=== PATIENT | female | born 1950 | race American Indian/Alaskan Native ===

== ENCOUNTER 2019-03-28 15:07 | Emergency (ER) | payer MEDICARE ==
--- NOTE | 2019-03-28 15:39 | Emergency Department Report ---
Chief Complaint: Headache Stated Complaint: OFF BALANCE/HEADACHE/DIZZY Time Seen by Provider: 03/28/19 15:37 - HPI History of Present Illness: This is a 69 y.o. female that presents to ER with headache for 3 weeks. Patient seen by PCP last week and prescribed medication for URI. Patient completed 5 days of antibiotics and continue to use symptomatic medication. PMH HTN, DM, & HLD. - Exam Vital Signs: Vital Signs 03/28/19 15:34 Temperature 97.5 F L Pulse Rate 109 H Respiratory 20 Rate Blood Pressure 151/85 O2 Sat by Pulse 98 Oximetry MSE screening note: Focused history and physical exam performed. Due to findings the following was ordered: CT of head ACC for further evaluation. ED Disposition for MSE Condition: Stable
--- NOTE | 2019-03-28 16:44 | Cat Scan Report ---
PROCEDURE: CT head without contrast. TECHNIQUE: Computerized tomography of the head was performed without contrast material. CT DOSE LENGTH PRODUCT: 805.4 mGycm HISTORY: Headache. COMPARISONS: None. FINDINGS: The ventricles are normal in size. There is diminished attenuation within the subcortical and deep wh ite matter of the right frontal lobe. This is located posteriorly near the central sulcus. At the pos terior margin of this low density is an ovoid mass with predominantly higher attenuation. This measur es approximately 1.8 cm x 1.3 cm in cross-section. The findings are suspicious for a dense metastasis or hemorrhagic metastasis with adjacent vasogenic edema. Clinical correlation is recommended. There is a smaller area of diminished attenuation involving the right parietal lobe. There is no definite m ass lesion. This could represent edema or a subacute infarct. There is a large, irregular area of low -attenuation involving the right cerebellar hemisphere. There is some mass effect evident with compre ssion of the right side of the fourth ventricle. Vasogenic edema from an occult metastasis or a large subacute cerebellar infarct are both possible. Further evaluation with a contrast enhanced MRI scan would be the best means of further evaluation. The calvarium appears intact. The mastoid air cells an d paranasal sinuses are well aerated as far as visualized. IMPRESSION: Abnormal findings in the posterior right frontal lobe, right parietal lobe and right cer ebellar hemisphere. 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 Subacute in farcts are also possible. This document is electronically signed by Mike Cote MD., Mar 28 2019 04:42:50 PM ET
--- NOTE | 2019-03-28 16:49 | Emergency Department Report ---
ED Dizziness HPI - General Chief Complaint: Headache Stated Complaint: OFF BALANCE/HEADACHE/DIZZY Time Seen by Provider: 03/28/19 15:37 Source: patient Mode of arrival: Ambulatory Limitations: No Limitations - History of Present Illness Initial Comments: 69-year-old female with history of hypertension, diabetes, hypercholesterolemia presents to the ED with 3 week history of headache and dizziness. Patient states 2 weeks ago patient was seen by her PCP and given an allergy medication and cough medication, however patient reports no relief with these medicines. Patient states all week ago she retired her PCP and was given a prescription for meclizine, which also did not help with her dizziness. Patient decided to come to the ER today because of persistence of her symptoms. The patient reports one episode of emesis a few days ago. Patient reports intermittent frontal headache, worse with coughing. Patient also reports she feels unsteady when she walks, sometimes having to hold onto the hurtado because she feels as if she might fall. Patient denies fever, chest pain, shortness of breath. Patient denies weakness or numbness. MD Complaint: dizziness -: week(s) (3) Timing: constant Description: off-balance, nausea History of Same: No History of Trauma: No Severity: severe Improves With: nothing Worsens With: movement Associated Symptoms: cough. denies: chest pain, confusion, fever/chills, shortness of breath, weakness - Related Data Previous Rx's Medication Instructions Recorded Last Taken Type Acetaminophen [Tylenol] 1,000 mg PO Q6HR #20 tablet 12/22/15 Unknown Rx Ondansetron [Zofran Odt] 4 mg PO Q8HR #15 tab.rapdis 12/22/15 Unknown Rx Allergies Allergy/AdvReac Type Severity Reaction Status Date / Time Penicillins Allergy Unknown Verified 03/28/19 15:11 ED Review of Systems ROS: Stated complaint: OFF BALANCE/HEADACHE/DIZZY Other details as noted in HPI Comment: All other systems reviewed and negative Constitutional: denies: chills, fever Eyes: denies: vision change Respiratory: cough Cardiovascular: denies: chest pain Gastrointestinal: nausea, vomiting Neurological: headache, abnormal gait, vertigo. denies: weakness, numbness, paresthesias ED Past Medical Hx - Past Medical History Hx Hypertension: Yes Hx Diabetes: Yes Additional medical history: high cholesterol - Surgical History Hx Cholecystectomy: Yes Additional Surgical History: ear - Social History Smoking Status: Never Smoker Substance Use Type: None - Medications Home Medications: Home Medications Medication Instructions Recorded Confirmed Last Taken Type Acetaminophen [Tylenol] 1,000 mg PO Q6HR #20 tablet 12/22/15 Unknown Rx Ondansetron [Zofran Odt] 4 mg PO Q8HR #15 tab.rapdis 12/22/15 Unknown Rx ED Physical Exam - General Limitations: No Limitations General appearance: alert, in no apparent distress - Head Head exam: Present: atraumatic, normocephalic - Eye Eye exam: Present: normal appearance, PERRL, EOMI - ENT ENT exam: Present: mucous membranes moist - Neck Neck exam: Present: normal inspection - Respiratory Respiratory exam: Present: normal lung sounds bilaterally. Absent: respiratory distress - Cardiovascular Cardiovascular Exam: Present: regular rate, normal rhythm - GI/Abdominal GI/Abdominal exam: Present: soft. Absent: distended, tenderness - Extremities Exam Extremities exam: Present: normal inspection - Neurological Exam Neurological exam: Present: alert, oriented X3, CN II-XII intact, other ([id number] nml). Absent: motor sensory deficit - Psychiatric Psychiatric exam: Present: normal affect, normal mood - Skin Skin exam: Present: warm, dry, intact, normal color ED Course Vital Signs 03/28/19 03/28/19 03/28/19 15:34 16:40 18:00 Temperature 97.5 F L 98 F 98 F Pulse Rate 109 H 83 72 Respiratory 20 16 19 Rate Blood Pressure 151/85 Blood Pressure 156/84 160/69 [Right] O2 Sat by Pulse 98 100 98 Oximetry 03/28/19 19:36 Temperature 98 F Pulse Rate 68 Respiratory 16 Rate Blood Pressure Blood Pressure 150/83 [Right] O2 Sat by Pulse 97 Oximetry - Consultations Consultation #1: 03/28/19 17:27 Spoke w/ DREA Mckinney at [place]. Accepts transfer. ED Medical Decision Making - Lab Data Result diagrams: 03/28/19 16:42 03/28/19 16:42 - Radiology Data Radiology results: report reviewed, image reviewed - Medical Decision Making 69-year-old female with 3 week history of headache and ataxia. CT head shows likely metastatic disease and frontal, parietal, cerebellar regions of the brain. No midline shift, however some mass effect seen in the cerebellum. Patient nontoxic appearing, awake and alert. Patient has no weakness or sensory loss on exam. [id number] testing is normal. Spoke with neurosurgeon at [facility], Dr Martínez, accepts patient in transfer. - Differential Diagnosis vertigo, CVA, mass Critical Care Time: Yes Critical care time in (mins) excluding proc time.: 35 Critical care attestation.: If time is entered above; I have spent that time in minutes in the direct care of this critically ill patient, excluding procedure time. Critical Care Time: 35 minutes ED Disposition Clinical Impression: Brain mass Disposition: [id number]/TX-[id number] ANOTHER TYPE [facility]THCARE Is pt being admited?: No Condition: Stable Referrals: [facility] [Other] - 3-5 Days Time of Disposition: 17:27
[2019-03-28 17:04] LABS: Basophils # (Auto) 0.1 K/mm3 (0.0-0.1); Basophils % (Auto) 0.6 % (0.0-1.8); Eosinophils # (Auto) 0.1 K/mm3 (0.0-0.4); Eosinophils % (Auto) 0.5 % (0.0-4.3); Hematocrit 36.4 % (30.3-42.9); Hemoglobin 12.1 gm/dl (10.1-14.3); Lymphocytes # (Auto) 1.6 K/mm3 (1.2-5.4); Lymphocytes % (Auto) 13.1 % (13.4-35.0); Mean Corpuscular HGB Conc 33 % (30-34); Mean Corpuscular Volume 87 fl (79-97); Monocytes # (Auto) 0.6 K/mm3 (0.0-0.8); Monocytes % (Auto) 4.8 % (0.0-7.3); Platelet Count 293 K/mm3 (140-440); Red Blood Count 4.21 M/mm3 (3.65-5.03); Red Cell Distribution Width 13.2 % (13.2-15.2)
[2019-03-28 17:18] LABS: INR 0.94 (0.87-1.13)
[2019-03-28 17:20] LABS: Partial Thromboplastin Time 26.9 Sec. (24.2-36.6)
[2019-03-28 17:54] LABS: BUN/Creatinine Ratio 19; Blood Urea Nitrogen 15 mg/dL (7-17); Calcium 9.9 mg/dL (8.4-10.2); Hemolysis Index 5
[2019-03-28] MEDS ORDERED: MORPHINE IV ONE (19:27)
[2019-03-28] MEDS ORDERED: MORPHINE ONE (19:31)
[2019-03-28 19:38] VITALS: BP 150/83
== END 2019-03-28 20:20 | disposition other institution (70) ==
LOC: ED 15:07
DX: C71.9 Malignant neoplasm of brain, unspecified (principal); I10 Essential (primary) hypertension; E11.9 Type 2 diabetes mellitus without complications; E78.00 Pure hypercholesterolemia, unspecified; R11.2 Nausea with vomiting, unspecified; Z88.0 Allergy status to penicillin
CPT/HCPCS: 36415; 70450; 80048; 85025; 85610; 85730; 96374; 99291; J2270